=== PATIENT | male | born 1940 | race Caucasian/White ===

== ENCOUNTER 2017-06-30 07:00 | Day surgery (SDC) | payer OTHER ==
[2017-06-30] MEDS ORDERED: Lactated Ringers 1,000 ML IV SCH (07:15)
[2017-06-30] MEDS ORDERED: Sodium Chloride 0.9% 10 ML Syringe FLUSH PRN (07:15)
[2017-06-30] MEDS ORDERED: Piperacillin/Tazobactam 3.375 GM in Sodium Chloride 0.9% 50 ML IV SCH (09:00)
[2017-06-30] MEDS ORDERED: Ketorolac 15 MG/ML SDV IVPUSH ONE (09:30)
[2017-06-30] MEDS ORDERED: Lidocaine 2% 100 MG/5 ML Syringe IVPUSH ONE (09:30)
[2017-06-30] MEDS ORDERED: Ondansetron 4 MG/2 ML SDV IVPUSH ONE (09:30)
[2017-06-30] MEDS ORDERED: Neostigmine Methylsulfate 10 MG/10 ML MDV IVPUSH ONE (09:30)
[2017-06-30] MEDS ORDERED: Succinylcholine 200 MG/10 ML MDV IV ONE (09:30)
[2017-06-30] MEDS ORDERED: Midazolam 1 MG/ML 2 ML SDV IV ONE (09:30)
[2017-06-30] MEDS ORDERED: Rocuronium 100 MG/10 ML MDV IV ONE (09:30)
[2017-06-30] MEDS ORDERED: Dexamethasone 4 MG/ML 5 ML MDV IVPUSH ONE (09:30)
[2017-06-30] MEDS ORDERED: ePHEDrine 50 MG/ML SDV IV ONE (09:30)
[2017-06-30] MEDS ORDERED: Propofol 200 MG/20 ML SDV IV ONE (09:30)
[2017-06-30] MEDS ORDERED: fentaNYL 100 MCG/2 ML SDV IV ONE (09:30)
--- NOTE | 2017-06-30 13:08 | OR ---
DATE OF OPERATION: 06/30/2017 SURGEON: Tra Szymanski MD PREOPERATIVE DIAGNOSES: 1. Abnormal CT scan with enlarged appendix. 2. Abdominal pain. POSTOPERATIVE DIAGNOSES: 1. Abnormal CT scan with enlarged appendix. 2. Abdominal pain. PROCEDURE: Laparoscopic appendectomy. ANESTHESIA: General. DESCRIPTION OF PROCEDURE: The patient was brought to the operating room, where general endotracheal anesthesia was administered. The abdomen was prepped with ChloraPrep and draped sterilely. Incision sites were injected with 0.25% Marcaine. An infraumbilical incision was made and extended into the peritoneal cavity without difficulty. The Beatrice cannulator was introduced and pneumoperitoneum obtained. A 5 mm ports were placed in the suprapubic position and chcf between the umbilicus and pubis. General exploration revealed the peritoneal, bowel, omental, visible liver in surfaces all to be normal in appearance. The bed was tipped in Trendelenburg position and rotated to the left. The appendix was identified and was long, but otherwise appeared normal. The mesoappendix was taken down with 2 applications of an Endo-SHAHZAD 2.5 mm stapler. The base of the appendix was transected with an Endo-SHAHZAD 3.5 mm stapler. Appendix was brought out through the umbilical port site. Right lower quadrant was irrigated and was hemostatic. Staple lines are intact. Photographs were taken. The ports were removed under direct vision and remained hemostatic. Umbilical fascia was closed with [id number] 0 Vicryl. Skin was closed with 4-0 Vicryl subcuticular sutures. Benzoin and Steri-Strips were placed and Band-Aids applied. The patient tolerated the procedure well. ESTIMATED BLOOD LOSS: Less than 5 mL. He returned to postanesthesia in stable condition. /[id number] LINDSEY/STEFANIE
--- NOTE | 2017-07-02 09:13 | PCM.HPR ---
H & P Addendum review - H & P Addendum Review Date of Original H & P: 06/26/17 Date Reviewed: 06/30/17 Time Reviewed: 08:00 Patient was Examined: No Changes
== END 2017-06-30 11:36 | disposition home or self-care (01) ==
LOC: FB.SDS 07:00
PROVIDERS: ATTEND Surgery
DX: K35.80 Unspecified acute appendicitis (principal); E78.00 Pure hypercholesterolemia, unspecified; N40.1 Benign prostatic hyperplasia with lower urinary tract symptoms; J45.20 Mild intermittent asthma, uncomplicated; Z79.899 Other long term (current) drug therapy; Z88.1 Allergy status to other antibiotic agents; Z88.8 Allergy status to other drugs, medicaments and biological substances; Z87.891 Personal history of nicotine dependence
CPT/HCPCS: 44970; 88304; J0131; J0330; J1100; J1885; J2250; J2405; J2543; J2704; J2710; J3010; J7050; J7120